=== PATIENT | female | born 1995 | race Caucasian/White ===

== ENCOUNTER 2020-04-17 23:54 | Emergency (ER) | payer OTHER ==
[~2020-04-17] VITALS: Ht 154.9 cm; Wt 63.5 kg
[2020-04-17 23:55] VITALS: Ht 154.9 cm; Wt 63.5 kg
[2020-04-18 02:09] VITALS: BP 110/59
== END 2020-04-18 02:09 | disposition left against medical advice (07) ==
LOC: ED 23:54
DX: Z53.21 Procedure and treatment not carried out due to patient leaving prior to being seen by health care provider (principal)